=== PATIENT | female | born 1945 | race Caucasian/White ===

== ENCOUNTER 2024-04-02 12:13 | Inpatient (IN) | payer OTHER, MEDICAID, MEDICARE ==
[~2024-04-02] VITALS: Ht 157.5 cm; Wt 69.5 kg
[2024-04-02 12:36] LABS: BASOPHILS % 0.7 % (0.0-2.0); EOSINOPHILS % 4.8 % (0.0-5.0); HEMOGLOBIN. 12.8 g/dL (12.0-16.0); LYMPHOCYTES % 26.1 % (20.0-50.0); MEAN CORPUSCULAR HEMOGLOBIN 33.3 pg (28.0-32.0); MEAN CORPUSCULAR HGB CONC 33.7 g/dL (31.0-37.0); MEAN CORPUSCULAR VOLUME 99.1 fL (81.0-99.0); MONOCYTES % 5.6 % (2.0-8.0); NEUTROPHILS % 62.8 % (40.0-76.0); PLATELET 204 x1000/uL (130-400); RED BLOOD CELL COUNT 3.83 mill/uL (4.2-5.4); RED CELL DISTRIBUTION WIDTH 13.6 % (11.6-14.6); WHITE BLOOD COUNT 8.9 x1000/uL (4.5-11.0)
[2024-04-02 12:44] LABS: CHLORIDE 101 mEq/L (98-107); POTASSIUM 4.9 mEq/L (3.5-5.1); SODIUM 130 mEq/L (136-145)
[2024-04-02] MEDS: ONDANSETRON HCL 4MG/2ML INJ IV ONE (12:44)
[2024-04-02] MEDS: LACTATED RINGERS 500 ML IV SCH (12:44)
[2024-04-02 12:45] LABS: CALCIUM 10.4 mg/dL (8.7-10.4); CARBON DIOXIDE 21 mEq/L (21-32)
[2024-04-02 12:50] LABS: CREATININE 1.2 mg/dL (0.6-1.0); GLUCOSE 164 mg/dL (70-105); UREA NITROGEN BLOOD 21 mg/dL (9-23)
[2024-04-02 12:52] LABS: ALANINE AMINOTRANSFERASE 17 IU/L (10-49); ALBUMIN 4.4 g/dL (3.2-4.8); ASPARTATE AMINOTRANSFERASE 37 IU/L (<34); BILIRUBIN DIRECT 0.2 mg/dL (<=3.0); BILIRUBIN TOTAL 0.9 mg/dL (0.1-1.0); PROTEIN TOTAL 7.5 g/dL (6.0-8.3)
[2024-04-02 13:12] LABS: TROPONIN I HIGH SENSITIVITY 153 ng/L (3.0-34)
[2024-04-02] MEDS: ASPIRIN 325MG TABLET PO ONE (14:56)
[2024-04-02 15:40] LABS: TROPONIN I HIGH SENSITIVITY 179 ng/L (3.0-34)
[2024-04-02] MEDS ORDERED: IPRATROPIUM/ALBUTEROL 0.5-3(2.5)MG/3ML NEB HHN PRN (16:15)
[2024-04-02] MEDS ORDERED: ACETAMINOPHEN 325MG TABLET PO PRN (16:15)
[2024-04-02] MEDS ORDERED: MORPHINE SULFATE 2 MG/ML INJ (NOT FOR IM USE) IV PRN (16:15)
[2024-04-02] MEDS ORDERED: ONDANSETRON HCL 4MG/2ML INJ IV PRN (16:15)
[2024-04-02] MEDS ORDERED: NALOXONE HCL 0.4MG/ML VIAL IV PRN (16:30)
[2024-04-02 20:00] VITALS: BP 140/46; PULSE 75; RESP 22; TEMP 36.6696; O2SAT 97
[2024-04-02 22:00] VITALS: BP 141/43; PULSE 69; RESP 17; O2SAT 98
[2024-04-02 22:49] VITALS: BP 141/43; PULSE 75; RESP 16; TEMP 36.696
[2024-04-03] VITALS (13 sets, daily range): BP systolic 84–170; BP diastolic 44–63; PULSE 69–117; RESP 16–29; TEMP 36.44736–37.05852; O2SAT 94–99
[2024-04-03 00:13] LABS: CREATINE KINASE MB FRACTION 4.9 ng/mL (0.5-3.6)
[2024-04-03 05:55] LABS: CREATINE KINASE MB FRACTION 4.4 ng/mL (0.5-3.6)
[2024-04-03 05:58] LABS: T4 FREE 1.31 ng/dL (0.89-1.76)
[2024-04-03 05:59] LABS: THYROID STIMULATING HORMONE 2.39 uIU/mL (0.55-4.78)
[2024-04-03] MEDS: ASPIRIN 81MG EC TABLET PO SCH (09:00)
[2024-04-03] MEDS: ENOXAPARIN 40MG/0.4ML SYR SUBCUT SCH (12:00)
[2024-04-03] MEDS: LOSARTAN 25 MG TABLET PO SCH (15:54)
[2024-04-03 16:42] LABS: POTASSIUM 4.3 mEq/L (3.5-5.1)
[2024-04-03 16:55] LABS: HEMATOCRIT 37.3 % (36.0-48.0); HEMOGLOBIN 12.7 g/dL (12.0-16.0); MEAN CORPUSCULAR HEMOGLOBIN 33.5 pg (28.0-32.0); MEAN CORPUSCULAR VOLUME 98.3 fL (81.0-99.0); PLATELET 184 x1000/uL (130-400); RED BLOOD CELL COUNT 3.79 mill/uL (4.2-5.4); RED CELL DISTRIBUTION WIDTH 13.8 % (11.6-14.6)
[2024-04-04] VITALS (10 sets, daily range): BP systolic 93–145; BP diastolic 32–120; PULSE 72–93; RESP 15–25; TEMP 36.22512–36.78072; O2SAT 95–99
[2024-04-04 06:43] LABS: POTASSIUM 4.3 mEq/L (3.5-5.1)
[2024-04-04 06:48] LABS: CREATININE 1.2 mg/dL (0.6-1.0)
[2024-04-04 07:14] LABS: BASOPHILS % 0.7 % (0.0-2.0); EOSINOPHILS % 2.8 % (0.0-5.0); HEMATOCRIT. 37.8 % (36.0-48.0); HEMOGLOBIN. 12.5 g/dL (12.0-16.0); LYMPHOCYTES % 24.4 % (20.0-50.0); MEAN CORPUSCULAR HEMOGLOBIN 32.8 pg (28.0-32.0); MEAN CORPUSCULAR VOLUME 99.4 fL (81.0-99.0); MEAN PLATELET VOLUME 10.6 fl (7.4-10.4); MONOCYTES % 7.9 % (2.0-8.0); NEUTROPHILS % 64.2 % (40.0-76.0); PLATELET 177 x1000/uL (130-400); RED BLOOD CELL COUNT 3.81 mill/uL (4.2-5.4); RED CELL DISTRIBUTION WIDTH 13.7 % (11.6-14.6); WHITE BLOOD COUNT 9.3 x1000/uL (4.5-11.0)
[2024-04-04] MEDS ORDERED: FENTANYL CITRATE/PF 50MCG/ML 2ML VIAL ONE (15:34)
[2024-04-04] MEDS ORDERED: MIDAZOLAM HCL 2 MG/2 ML VIAL ONE (15:34)
[2024-04-04] MEDS ORDERED: ATROPINE SULFATE 1MG/10ML SYR IV PRN (15:45)
[2024-04-04] MEDS ORDERED: NOREPINEPHRINE 8MG/250ML PMX 250 ML IV ONE (15:52)
[2024-04-05] VITALS (12 sets, daily range): BP systolic 102–163; BP diastolic 39–61; PULSE 73–106; RESP 11–29; TEMP 36.28068–36.83628; O2SAT 89–98
[2024-04-05 07:32] LABS: HEMATOCRIT 36.5 % (36.0-48.0); HEMOGLOBIN 12.5 g/dL (12.0-16.0); MEAN CORPUSCULAR HEMOGLOBIN 33.4 pg (28.0-32.0); MEAN CORPUSCULAR HGB CONC 34.2 g/dL (31.0-37.0); MEAN CORPUSCULAR VOLUME 97.7 fL (81.0-99.0); PLATELET 185 x1000/uL (130-400); RED BLOOD CELL COUNT 3.73 mill/uL (4.2-5.4); RED CELL DISTRIBUTION WIDTH 13.6 % (11.6-14.6); WHITE BLOOD COUNT 8.3 x1000/uL (4.5-11.0)
[2024-04-05 07:34] LABS: POTASSIUM 4.4 mEq/L (3.5-5.1)
[2024-04-05 07:35] LABS: CALCIUM 10.9 mg/dL (8.7-10.4)
[2024-04-05] MEDS ORDERED: ATOR20TA MT (16:31)
[2024-04-05] MEDS ORDERED: LOSA25TA26 MT (16:31)
[2024-04-05] MEDS ORDERED: ASPI-1497 MT (16:31)
[2024-04-06] VITALS (7 sets, daily range): BP systolic 71–156; BP diastolic 47–70; PULSE 67–141; RESP 18–22; TEMP 36.50292–36.83628; O2SAT 92–100
== END 2024-04-06 10:48 | disposition home or self-care (01) | DRG 281 ==
LOC: ER 12:13 → EDBEDREQSVC 14:07 → EDBEDREQ 14:07 → 5EST 18:21
PROVIDERS: ADMIT Internal Medicine; ATTEND Internal Medicine
PROC: 4A023N7 Measurement of Cardiac Sampling and Pressure, Left Heart, Percutaneous Approach (ICD-10-PCS; principal; 2024-04-04)
PROC: B211YZZ Fluoroscopy of Multiple Coronary Arteries using Other Contrast (ICD-10-PCS; 2024-04-04)
PROC: B215YZZ Fluoroscopy of Left Heart using Other Contrast (ICD-10-PCS; 2024-04-04)
DX: I21.4 Non-ST elevation (NSTEMI) myocardial infarction (principal); E87.1 Hypo-osmolality and hyponatremia; N17.9 Acute kidney failure, unspecified; I10 Essential (primary) hypertension; I48.91 Unspecified atrial fibrillation; E78.5 Hyperlipidemia, unspecified; Z79.899 Other long term (current) drug therapy
CPT/HCPCS: 36415; 71045; 80048; 80076; 82533; 82550; 82553; 83930; 84439; 84443; 84484; 85025; 85027; 93005; 93306; 93458; 99291; C1769; C1887; C1893; J1650; J2250; J2405; J3010; J3490